=== PATIENT | female | born 1980 | race Caucasian/White ===

== ENCOUNTER 2016-06-09 07:34 | Day surgery (SDC) | payer OTHER ==
[2016-06-05 14:52] VITALS: BMI 27.0
[~2016-06-09 07:34] MED LIST: LACTATED RINGERS 1,000 ML IV SCH; LIDOCAINE 1% 20 ML VIAL (10MG/ML) FOR IV START INTRADERMA PRN
[2016-06-09] MEDS ORDERED: LACTATED RINGERS 1,000 ML IV ONE (07:42)
[2016-06-09] MEDS ORDERED: LIDOCAINE 1% 20 ML VIAL (10MG/ML) FOR IV START INTRADERMA ONE (07:48)
[2016-06-09 07:49] VITALS: RESP 18; TEMP 98
[2016-06-09] MEDS ORDERED: LIDOCAINE 1% INJ 10MG/ML (20 ML MDV) ONE (08:43)
[2016-06-09] MEDS ORDERED: PROPOFOL 10 MG/ML 20 ML VIAL IV ONE (08:43)
--- NOTE | 2016-06-09 09:22 | P.PCN ---
Date of Procedure: 06/09/16 Preoperative Diagnosis: Change in bowel habits Postoperative Diagnosis: Tortuous redundant sigmoid colon, diverticuli, suboptimal bowel prep, internal hemorrhoids Procedure(s) Performed: Colonoscopy Anesthesia: MAC Surgeon: Emi Schulz Estimated Blood Loss (ml): 0 IV fluids (ml): 300 Pathology: none sent Condition: stable Disposition: PACU Indications for Procedure: Change in bowel habits, family history colon cancer Operative Findings: Sigmoid diverticuli, tortuous redundant sigmoid colon, internal hemorrhoids Description of Procedure: Patient is a 35-year-old white female who has recently noted a change in bowel habits. She presents for colonoscopic evaluation. Patient was taken to the endoscopy suite and following sedation rectal exam was performed. Patient was noted to have adequate sphincter tone no masses. The colonoscope was passed through the anus into the rectum. The bowel prep was somewhat suboptimal. However we were able to evaluate the lumen and pass the scope carefully cephalad. The sigmoid colon was noted to be tortuous and redundant. Additionally there were noted to be diverticuli present. The prep was in better as we advance cephalad. The area of the splenic flexure was noted to the splenic flexure was somewhat high and somewhat sharp angulation. However we were carefully able to manipulate the scope through the area of the splenic flexure. The scope was passed through the transverse colon hepatic flexure right colon to the area of the cecum. No lesions of concern in the mucosa were identified. Proximally 6 minutes were taken to withdraw the scope from the area of the cecum to the rectum. Was performed to the mucosa. Again no lesions of concern were noted in the cecum or right colon. No areas of concern were noted in the transverse colon. No areas of concern in the left colon. The sigmoid colon was tortuous and redundant and diverticuli had been identified previously. The scope was brought down into the rectum where it was retroflexed and internal hemorrhoids were identified. Impression/plan: 1. Internal hemorrhoids 2. Redundant tortuous sigmoid colon with diverticuli Plan: 1. Conservative management
--- NOTE | 2016-06-09 09:23 | P.DS ---
Providers Attending physician: Emi Schulz Primary care physician: Sal Hodge Plan - Discharge Summary Discharge Medication List ALPRAZolam [Xanax] 0.25 mg PO TID PRN 06/05/16 [History] Birthcontrol 1 tab PO QAM 06/05/16 [History] Ibuprofen [Motrin] 200 - 400 mg PO Q6HR PRN 06/05/16 [History] Multivitamins, Thera [Multivitamin (formulary)] 1 tab PO DAILY 06/05/16 [History ] PARoxetine [Paxil] 20 mg PO QAM 06/05/16 [History] Follow up Appointment(s)/Referral(s): Emi Schulz MD [STAFF PHYSICIAN] - 1 Week Activity/Diet/Wound Care/Special Instructions: Do not drive today Discharge Disposition: HOME SELF-CARE
[2016-06-09 09:46] VITALS: BP 104/58; PULSE 70
== END 2016-06-09 10:04 | disposition home or self-care (01) ==
LOC: ORWHC2ENDO 07:34
PROVIDERS: ATTEND Surgery
DX: K57.30 Diverticulosis of large intestine without perforation or abscess without bleeding (principal); Q43.8 Other specified congenital malformations of intestine; K63.89 Other specified diseases of intestine; Z80.0 Family history of malignant neoplasm of digestive organs; K64.8 Other hemorrhoids; F32.9 Major depressive disorder, single episode, unspecified; F41.9 Anxiety disorder, unspecified; Z79.899 Other long term (current) drug therapy
CPT/HCPCS: 81025; 84703; 45378; J2001; J2704

== ENCOUNTER 2019-12-19 06:09 | Inpatient (IN) | payer BC, OTHER ==
--- NOTE | 2019-12-18 19:29 | P.HPOB ---
History of Present Illness H&P Date: 12/18/19 Chief Complaint: Scheduled repeat section This is a 38 y.o. female, 4, para 2, with an estimated date of confinement of 12/26/2019, estimated gestational age of 39 weeks, who presents for scheduled repeat section. She admits to good movement. She complains of irregular contractions and pressure. labs: GC/Chlamydia/Trich-neg Hepatitis B surface antigen-neg RPR-NR Rubella-immune Blood type-O+ Antibody screen-neg Hemoglobin-14.1 Random glucose-81 Quad screen-wnl US-normal anatomy 1 hr. GTT-120 GBS-positive OB Hx: . History of 1 miscarriage and 2 sections at term. 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 Works part-time for [employer]. Review of Systems Constitutional: Denies chills, Denies fever Eyes: denies blurred vision, denies pain Ears, nose, mouth and throat: Denies headache, Denies sore throat Cardiovascular: Denies chest pain, Denies shortness of breath Respiratory: Denies cough Gastrointestinal: Reports abdominal pain (contractions), Reports heartburn Genitourinary: Reports pelvic pain, Reports Musculoskeletal: Reports low back pain, Reports muscle cramps Neurological: Denies numbness, Denies weakness Psychiatric: Reports anxiety, Reports depression (history of depression) Past Medical History Past Medical History: No Reported History History of Any Multi-Drug Resistant Organisms: None Reported Past Surgical History: Section, Cholecystectomy, Tonsillectomy Additional Past Surgical History / Comment(s): c sect x 2,lt knee x3,taiwo bunionectomies Past Anesthesia/Blood Transfusion Reactions: Motion Sickness Additional Past Anesthesia/Blood Transfusion Reaction / Comment(s): tremors with anesthesia,no blood transfusion hx Past Psychological History: Anxiety, Depression Smoking Status: Never smoker Past Alcohol Use History: Occasional Past Drug Use History: None Reported - Past Family History Mother Family Medical History: Thyroid Disorder Father Family Medical History: No Reported History Medications and Allergies Home Medications Medication Instructions Recorded Confirmed Type Gph183/Iron/FA/O3/Dha/Epa/Fish 1 each PO DAILY 12/18/19 12/19/19 History [ Multi-Dha Softgel] Allergies Allergy/AdvReac Type Severity Reaction Status Date / Time No Known Allergies Allergy Verified 06/05/16 14:44 Exam Osteopathic Statement: *. No significant issues noted on an osteopathic structural exam other than those noted in the History and Physical/Consult. HEENT: within normal limits Heart: regular rate and rhythm Lungs: clear to auscultation bilaterally Abdomen: , non-tender Cervix: closed/60%/-2 heart tones: 150's by doppler Extremities: 1+ pitting edema bilaterally Results Result Diagrams: 12/19/19 06:35 Assessment and Plan (1) 39 weeks gestation of Current Visit: No Status: Acute Code(s): Z3A.39 - 39 WEEKS GESTATION OF SNOMED Code(s): 47921320 (2) Previous delivery affecting Current Visit: No Status: Acute Code(s): O34.219 - MATERNAL CARE FOR UNSP TYPE SCAR FROM PREVIOUS DEL SNOMED Code(s): 564202193 (3) Group B Streptococcus carrier, +RV culture, currently Current Visit: No Status: Acute Code(s): O99.820 - STREPTOCOCCUS B CARRIER STATE COMPLICATING SNOMED Code(s): 5570167893349 Plan: Admission for scheduled repeat section. I have discussed the risks, benefits, and alternative therapies for the above- mentioned procedure and for both sedation/anesthesia as well as necessary blood products administration, if indicated, as they pertain to this patient. The patient has indicated her understanding and acceptance of the risks and procedures discussed.
[2019-12-19] MEDS ORDERED: LACTATED RINGERS 1,000 ML IV ONE (06:34)
[2019-12-19] MEDS ORDERED: LIDOCAINE 1% (10MG/ML) FOR IV START INTRADERMA PRN (06:34)
[2019-12-19] MEDS ORDERED: CITRIC ACID-SODIUM CITRATE 15 ML CUP PO ONE (06:34)
[2019-12-19 06:48] LABS: Basophils % (A) 0 %; Eosinophils # (A) 0.1 k/uL (0-0.7); Eosinophils % (A) 1 %; HGB 10.1 gm/dL (11.4-16.0); Hypochromasia Slight; Lymphocytes # (A) 2.2 k/uL (1.0-4.8); Lymphocytes % (A) 20 %; MCH 25.9 pg (25.0-35.0); MCHC 32.7 g/dL (31.0-37.0); MCV 79.2 fL (80.0-100.0); Mean Platelet Volume 6.9; Monocytes # (A) 0.6 k/uL (0-1.0); Monocytes % (A) 5 %; Neutrophils # (A) 7.8 k/uL (1.3-7.7); Neutrophils % (A) 71 %; Platelet Count 314 k/uL (150-450); Poikilocytosis Slight; RBC 3.91 m/uL (3.80-5.40); RDW 15.6 % (11.5-15.5)
[2019-12-19] MEDS: LACTATED RINGERS 1,000 ML IV SCH ×3 (07:16→15:26)
--- NOTE | 2019-12-19 08:54 | P.OP ---
Date of Procedure: 12/19/19 Preoperative Diagnosis: 1. Intrauterine at 39-0/7 weeks. 2. History of previous sections. 3. Group B streptococcus carrier. Postoperative Diagnosis: Same Procedure(s) Performed: Repeat low transverse section Anesthesia: spinal (Duramorph) Surgeon: Ebony Parsons Industrial Controls Technician #1: Rin Obrien Estimated Blood Loss (ml): 400 Pathology: none sent Condition: stable Disposition: floor Indications for Procedure: This is a 38-year-old female 4 para 2 at 39-0/7 weeks who presented for scheduled repeat section. I have discussed the risks, benefits, and alternative therapies for the above- mentioned procedure and for both sedation/anesthesia as well as necessary blood products administration, if indicated, as they pertain to this patient. The patient has indicated her understanding and acceptance of the risks and procedures discussed. Operative Findings: A viable male infant is noted in the vertex presentation with scores of 9 at 1 minute and 9 at 5 minutes and weight of 8 lbs. 1 oz. Normal uterus tubes and ovaries are noted. Description of Procedure: The patient is taken to the operating room where she is placed in the dorsal supine position with leftward tilt after spinal Duramorph anesthesia is given. She is prepped and draped in the normal sterile fashion. Skin was tested and found to be adequately anesthetized. A Pfannenstiel skin incision was made with a scalpel through the previous laparotomy scar. A second knife was used to carry the incision down to the underlying layer of fascia. The fascia was nicked in the midline with a scalpel and then extended laterally bilaterally with Andres scissors. The anterior lip of the fascia was grasped with 2 Marcel clamps and then dissected off the underlying rectus muscle in the midline with Andres scissors. The inferior aspect of the fascial incision was grasped with 2 Marcel clamps and dissected off the underlying rectus muscle and the midline with Andres scissors. Next the peritoneum layer was tented up with 2 hemostats and then entered sharply with the scalpel. The incision is extended superiorly and inferiorly with Metzenbaum scissors. Next a DeLee retractor is placed. The vesicouterine peritoneum is entered sharply with Metzenbaum scissors and extended laterally bilaterally with Metzenbaum scissors and then the bladder flap is pushed inferiorly. The lower uterine segment is incised in transverse fashion with the scalpel and then bluntly entered with a hemostat. Clear fluid is noted. The incision was then extended laterally bilaterally with 2 fingers. Next the infant's head is delivered through the incision. Nose and mouth are bulb suctioned. The remainder of the is easily delivered and placed on mother's abdomen. Cord is clamped and cut. is taken to warmer by nursing staff. Cord blood was obtained secondary to O+ blood type. Uterine fundus is gently massaged and placenta is delivered manually. Uterus is exteriorized and cleared of all clots and debris. Uterine incision is closed with 0 Vicryl suture in a running locked fashion. A second layer of 0 Vicryl suture is used in a running fashion for hemostasis. Once adequate hemostasis as assured, the vesicouterine peritoneum is reapproximated with 2-0 Vicryl suture in a running fashion. Posterior cul-de-sac is suctioned of all clots and debris. Uterus is returned to the abdomen. Incision is noted to be hemostatic. Peritoneal layer is closed with 0 Vicryl suture in a running fashion. Muscle layer is reapproximated with 0 Vicryl suture in interrupted fashion. Fascia layer is then closed with 0 PDS suture with 2 sutures meeting in the midline and the knots buried in either side and in the midline. The subcutaneous tissue was then closed with 2-0 Vicryl suture. Skin layer was then closed with román. All sponge and needle counts are correct. The patient is taken to recovery room in stable condition.
[2019-12-19] MEDS ORDERED: HYDROcodone/APAP 7.5-325MG 1 EACH TAB PO PRN (09:06)
[2019-12-19] MEDS ORDERED: diphenhydrAMINE 50 MG CAP PO PRN (09:06)
[2019-12-19] MEDS ORDERED: OXYTOCIN 20 UNITS/1000 ML NS 1,000 ML IV SCH (09:06)
[2019-12-19] MEDS ORDERED: NALOXONE 0.4 MG/ML 1 ML VIAL IV PRN (09:06)
[2019-12-19] MEDS ORDERED: ONDANSETRON 4 MG/2 ML VIAL IVP PRN (09:06)
[2019-12-19] MEDS ORDERED: ZOLPIDEM 5 MG TAB PO PRN (09:06)
[2019-12-19] MEDS ORDERED: diphenhydrAMINE 50 MG/ML 1 ML VIAL IVP PRN ×2 (09:06)
[2019-12-19] MEDS ORDERED: LANOLIN CREAM 5 GM TUBE TOPICAL PRN (09:06)
[2019-12-19] MEDS ORDERED: diphenhydrAMINE 25 MG CAP PO PRN (09:06)
[2019-12-19] MEDS ORDERED: METOCLOPRAMIDE 5 MG/ML 2 ML VIAL IVP PRN (09:06)
[2019-12-19] MEDS ORDERED: ACETAMINOPHEN TAB 325 MG TAB PO PRN (09:06)
[2019-12-19] MEDS: PRENATAL VIT-IRON-FOLIC ACID 1 EACH CAP PO SCH (09:51)
[2019-12-19] MEDS: SENNOSIDES-DOCUSATE SODIUM 1 EACH TAB PO SCH (09:52)
[2019-12-19] MEDS: KETOROLAC 15 MG/ML 1 ML VIAL IVP PRN (22:56)
[2019-12-19] MEDS: SIMETHICONE 80 MG CHEWABLE PO PRN (23:35)
--- NOTE | 2019-12-20 06:27 | P.PN ---
Progress Note - Text Progress Note Date: 12/20/19 Virginia is postop day 1 from a spinal Duramorph. Her postop has been uneventful. Pain is been under control. She had minimal months of itching. She has been able to ambulate and been able to urinate on her own. She has not had any bowel movements. She denies any overt weakness. He denies any respiratory depression and difficulty in breathing.
[2019-12-20] MEDS: KETOROLAC 15 MG/ML 1 ML VIAL IVP PRN (06:48)
[2019-12-20] MEDS: SENNOSIDES-DOCUSATE SODIUM 1 EACH TAB PO SCH ×3 (08:08→19:51)
--- NOTE | 2019-12-20 08:29 | P.PNOBGPC ---
Subjective - Subjective Principal diagnosis: Status post repeat section postoperative day #1 Interval history: Patient is doing well. She is passing flatus. She has not had a bowel movement yet. She has urinated without difficulty. Her pain is well-controlled so far with Toradol. She is bottle feeding. Lochia is decreasing. Patient reports: Reports appetite normal, Reports voiding normally, Reports pain well controlled, Reports ambulating normally : doing well, bottle feeding Objective - Vital Signs Latest vital signs: Vital Signs Temp Pulse Resp BP Pulse Ox 12/20/19 07:57 98.2 F 96 16 113/66 12/20/19 04:00 98.2 F 98 16 115/78 12/20/19 00:00 98.1 F 108 H 15 110/78 12/19/19 20:05 98 F 100 15 135/84 100 12/19/19 16:00 98.6 F 95 18 118/74 12/19/19 11:15 97.3 F L 85 18 108/60 98 12/19/19 10:28 97.0 F L 90 18 111/62 97 12/19/19 10:00 78 112/63 12/19/19 09:45 96.9 F L 88 18 111/65 98 12/19/19 09:30 87 115/65 12/19/19 09:15 96.5 F L 97 18 117/63 98 12/19/19 09:00 97.4 F L 99 18 118/64 97 Intake and Output 12/19/19 12/20/19 12/20/19 22:59 06:59 14:59 Output Total 8452 939 0763 Balance -1600 -450 -1600 Output: Urine 5867 108 5009 Uretheral (Zimmer) 1150 Other: # Voids 1 - Exam Extremities: Present: normal. Absent: tenderness Abdomen: Present: normal appearance, soft. Absent: distention, tenderness Incision: Present: normal, dry, intact. Absent: erythematous Uterus: Present: normal, firm. Absent: tenderness Assessment and Plan Assessment: Status post repeat section postoperative day #1 (1) 39 weeks gestation of Current Visit: No Status: Acute Code(s): Z3A.39 - 39 WEEKS GESTATION OF SNOMED Code(s): 84613615 (2) Previous delivery affecting Current Visit: No Status: Acute Code(s): O34.219 - MATERNAL CARE FOR UNSP TYPE SCAR FROM PREVIOUS DEL SNOMED Code(s): 495636122 (3) Group B Streptococcus carrier, +RV culture, currently Current Visit: No Status: Acute Code(s): O99.820 - STREPTOCOCCUS B CARRIER STATE COMPLICATING SNOMED Code(s): 0739261415122 Plan: Continue with postoperative care. Will switch to oral pain medications today. Anticipate probable discharge home tomorrow.
[2019-12-20 09:37] LABS: Basophils % (A) 0 %; Eosinophils % (A) 0 %; HCT 29.3 % (34.0-46.0); HGB 9.4 gm/dL (11.4-16.0); Lymphocytes # (A) 1.4 k/uL (1.0-4.8); Lymphocytes % (A) 12 %; MCH 25.5 pg (25.0-35.0); MCV 79.8 fL (80.0-100.0); Mean Platelet Volume 7.2; Monocytes # (A) 0.6 k/uL (0-1.0); Monocytes % (A) 5 %; Neutrophils # (A) 9.5 k/uL (1.3-7.7); Neutrophils % (A) 82 %; Platelet Count 272 k/uL (150-450); Poikilocytosis Slight; RBC 3.67 m/uL (3.80-5.40); RDW 15.5 % (11.5-15.5); WBC 11.6 k/uL (3.8-10.6)
[2019-12-20] MEDS: IBUPROFEN 600 MG TAB PO PRN ×2 (11:58→18:25)
[2019-12-20] MEDS: PRENATAL VIT-IRON-FOLIC ACID 1 EACH CAP PO SCH (11:58)
[2019-12-20] MEDS: SIMETHICONE 80 MG CHEWABLE PO PRN (15:42)
[2019-12-20] MEDS: LACTATED RINGERS 1,000 ML IV SCH ×4 (20:42→20:43)
[2019-12-20] MEDS: HYDROcodone/APAP 5-325MG 1 EACH TAB PO PRN (23:56)
[2019-12-21] MEDS ORDERED: ONDANSETRON 4 MG/2 ML VIAL IVP PRN (01:35)
[2019-12-21] MEDS ORDERED: diphenhydrAMINE 50 MG/ML 1 ML VIAL IVP PRN ×2 (01:35)
[2019-12-21] MEDS ORDERED: NALOXONE 0.4 MG/ML 1 ML VIAL IV PRN (01:36)
[2019-12-21] MEDS: HYDROcodone/APAP 5-325MG 1 EACH TAB PO PRN ×2 (04:26→12:53)
[2019-12-21] MEDS: SENNOSIDES-DOCUSATE SODIUM 1 EACH TAB PO SCH (08:32)
[2019-12-21] MEDS: IBUPROFEN 600 MG TAB PO PRN (08:32)
--- NOTE | 2019-12-21 08:59 | P.DS ---
Providers Date of admission: 12/19/19 06:09 Expected date of discharge: 12/21/19 Attending physician: Ebony Parsons Primary care physician: Stated None - Discharge Diagnosis(es) (1) 39 weeks gestation of Current Visit: No Status: Acute (2) Previous delivery affecting Current Visit: No Status: Acute (3) Group B Streptococcus carrier, +RV culture, currently Current Visit: No Status: Acute Hospital Course: This is a 38-year-old female 4 para 2 at 39-0/7 weeks who presented for scheduled repeat section. She underwent a repeat low transverse section under spinal Duramorph anesthesia and delivered a viable male infant with scores of 9 at 1 minute and 9 at 5 minutes and infant weight of 8 lbs. 1 oz. Her course has been uncomplicated. She has been passing some flatus but no bowel movement yet. Lochia is decreasing. Her pain has been fairly well-controlled with ibuprofen and [place]. Vital signs are stable. Abdomen is soft with positive bowel sounds 4. Incision is clean dry and intact with román in place. Extremities show negative Homans. Impression is status post repeat section postoperative day #2. Plan is to discharge home later today. Routine postoperative and instructions are given. Román will be removed and Steri-Strips placed prior to discharge. She will be given a perception for ibuprofen and [place]. She was counseled on opioid use and has signed a start taking opioid form. She is advised follow-up in the office in 1 week for a postoperative check and in 6 weeks for a postpartu m check. She is advised to call the office if she has any further questions or concerns prior to her appointment time. Procedures: Repeat low transverse section on 12/19/2019 Patient Condition at Discharge: Stable Plan - Discharge Summary New Discharge Prescriptions: New Ibuprofen [Motrin] 600 mg PO Q6HR PRN #60 tab PRN Reason: Mild Pain Or Fever >= 100.5 HYDROcodone/APAP 5-325MG [[place] 5-325] 1 each PO Q4HR PRN #28 tab PRN Reason: Moderate Pain Continue Fti171/Iron/FA/O3/Dha/Epa/Fish [ Multi-Dha Softgel] 1 each PO DAILY Discharge Medication List Lnc199/Iron/FA/O3/Dha/Epa/Fish [ Multi-Dha Softgel] 1 each PO DAILY 12/18/19 [History] HYDROcodone/APAP 5-325MG [[place] 5-325] 1 each PO Q4HR PRN #28 tab 12/21/19 [Rx] Ibuprofen [Motrin] 600 mg PO Q6HR PRN #60 tab 12/21/19 [Rx] Follow up Appointment(s)/Referral(s): Ebony Parsons DO [Doctor of Osteopathic Medicine] - 1 Week Activity/Diet/Wound Care/Special Instructions: Instructions 1. Do not begin any exercise program for 3 weeks. 2. Do not resume sexual relations for 3 weeks or longer if uncomfortable. 3. You may take tub baths or showers at any time. 4. You may use tampons if desired after 3 weeks. 5. Keep the area of episiotomy (stitches) clean and dry. 6. If you are not nursing, wear a good fitting, supportive bra during the day and limit fluid intake for at least 1 week to prevent breast engorgement. 7. Call the office, [phone], within the next week to make appointment for your 6 week checkup if it has not already been made. 8. Report any of the following occurrences to the doctor promptly: a. Heavy, excessive bleeding b. Chills, fever c. Burning or frequency of urination d. Pain or redness and breasts if nursing e. Increasing pain or swelling in episiotomy (stitches). In addition to the above instructions, the following additional should be followed: 1. No heavy lifting or straining (exercising) until after 6 week checkup. 2. Keep abdominal incision clean and dry: You may wear a dressing if more comfortable. 3. Make office appointment for 10 days after going home or as instructed by her doctor. Discharge Disposition: HOME SELF-CARE
[2019-12-21 09:54] VITALS: BP 115/67; PULSE 77; RESP 16; TEMP 97.9
[2019-12-21] MEDS: PRENATAL VIT-IRON-FOLIC ACID 1 EACH CAP PO SCH (09:56)
== END 2019-12-21 15:17 | disposition home or self-care (01) | DRG 788 ==
LOC: 4FBP 06:09
PROVIDERS: ADMIT Obstetrics & Gynecology; ATTEND Obstetrics & Gynecology
PROC: 10D00Z1 Extraction of Products of Conception, Low, Open Approach (ICD-10-PCS; principal; 2019-12-19 08:00)
DX: O34.211 Maternal care for low transverse scar from previous cesarean delivery (principal); O99.824 Streptococcus B carrier state complicating childbirth; Z86.59 Personal history of other mental and behavioral disorders; Z37.0 Single live birth; Z3A.39 39 weeks gestation of pregnancy; Z90.49 Acquired absence of other specified parts of digestive tract; Z90.89 Acquired absence of other organs; Z87.19 Personal history of other diseases of the digestive system; Z87.898 Personal history of other specified conditions; Z83.49 Family history of other endocrine, nutritional and metabolic diseases
CPT/HCPCS: 85025; 86850; 86900; 86901

== ENCOUNTER → 2022-01-02 | Outpatient (CLI) | payer BC, OTHER ==
--- NOTE | 2022-01-02 12:50 | US ---
EXAMINATION TYPE: Transabdominal DATE OF EXAM: 01/02/2022 12:21 PM COMPARISON: NONE CLINICAL HISTORY: O46.91 SPOTTING for one day, mild cramping. EXAM PERFORMED: Transvaginal (TV) and Transabdominal (TA) EXAM MEASUREMENTS: GESTATIONAL AGE / DATING Physician Established: Not yet establishedDates by LMP: 10/31/2021 (9 weeks/0 days) EDC: 08/07/2022 Dates by First Scan: No previous this is first scan Dates by Current Scan for: (6 weeks/1 days) EDC: 08/27/2022 MATERNAL ANATOMY Uterus: 10.7 x 5.3 x 6.9cm Right Ovary: 2.6 x 2.2 x 2.3cm Left Ovary: 2.5 x 1.8 x 2.2cm Post CDS / Adnexa: wnl Presence of free fluid: No Presence of corpus luteal cyst: No Presence of subchorionic bleed: No GESTATION / SURVEY CRL: 0.41cm (6 weeks/1 days) MSD: 1.76cm (6 weeks/1 days) Yolk Sac (normal less than 6mm): 2.2mm Heart Rate: 0 bpm IUP: Demise versus early . Short-term follow-up and correlation with beta hCG recomme nded Date of LMP: 10/31/2021 IMPRESSION: 1. Nonvisualization of cardiac activity within the pole. Early versus demise. C orrelation with beta-hCG and follow-up recommended. 2. Single intrauterine gestational sac with pole estimated at 6 weeks 1 day gestation based on the crown-rump length and the mean sac diameter.
== END | disposition home or self-care (01) ==
LOC: RADUSWWP 11:06
PROVIDERS: ATTEND Obstetrics & Gynecology
DX: O26.891 Other specified pregnancy related conditions, first trimester (principal); Z3A.01 Less than 8 weeks gestation of pregnancy
CPT/HCPCS: 76801; 76817; 84702

== ENCOUNTER 2022-01-08 10:49 | Day surgery (SDC) | payer BC, OTHER ==
[2022-01-06 15:16] VITALS: BMI 25.2
--- NOTE | 2022-01-08 08:24 | P.HPOB ---
History of Present Illness H&P Date: 01/08/22 Chief Complaint: Incomplete This is a 41 y.o. female, 5, para 3, with a LMP of 10/31/2021, who presents for suction dilatation and curettage due to incomplete miscarriage. She had 2 ultrasounds showing pole with no heart tones. She has been bleeding and passing clots and tissue. She had another ultrasound in the office yesterday that still showed a sac low in the uterus with clot. HEr BHCG levels have been falling and blood type is O+. 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 Unemployed. Review of Systems Constitutional: Denies chills, Denies fever Eyes: denies blurred vision, denies pain Ears, nose, mouth and throat: Denies headache, Denies sore throat Cardiovascular: Denies chest pain, Denies shortness of breath Respiratory: Denies cough Gastrointestinal: Reports abdominal pain (cramping) Genitourinary: Reports abnormal vaginal bleeding, Reports pelvic pain, Reports Musculoskeletal: Denies myalgias Integumentary: Denies pruritus, Denies rash Neurological: Denies numbness, Denies weakness Psychiatric: Reports anxiety, Reports depression Past Medical History Past Medical History: No Reported History History of Any Multi-Drug Resistant Organisms: None Reported Past Surgical History: Section, Cholecystectomy, Orthopedic Surgery, Tonsillectomy Additional Past Surgical History / Comment(s): Section X3, left knee surgery X3, bilateral bunionectomies. Past Anesthesia/Blood Transfusion Reactions: Motion Sickness Additional Past Anesthesia/Blood Transfusion Reaction / Comment(s): Tremors with anesthesia. No blood transfusion hx. Past Psychological History: Anxiety, Depression Smoking Status: Never smoker Past Alcohol Use History: Occasional Past Drug Use History: None Reported - Past Family History Mother Family Medical History: No Reported History, Thyroid Disorder Father Family Medical History: No Reported History Medications and Allergies Home Medications Medication Instructions Recorded Confirmed Type Rqm584/Iron/FA/O3/Dha/Epa/Fish 1 each PO DAILY 12/18/19 01/06/22 History [ Multi-Dha Softgel] Allergies Allergy/AdvReac Type Severity Reaction Status Date / Time No Known Allergies Allergy Verified 01/08/22 11:10 Exam Osteopathic Statement: *. No significant issues noted on an osteopathic structural exam other than those noted in the History and Physical/Consult. HEENT: within normal limits Heart: regular rate and rhythm Lungs: clear to auscultation bilaterally Abdomen: soft, mildly tender suprapubic area Pelvic: Cervix os sl. opened with some clot. Uterus anteverted, mildly tender, slightly enlarged with no adnexal masses or tenderness Extremities: neg. Emily's Assessment and Plan (1) Incomplete Current Visit: No Status: Acute Code(s): O03.4 - INCOMPLETE SPONTANEOUS WITHOUT COMPLICATION SNOMED Code(s): 926089577 Plan: Proceed with suction dilatation and curettage. I have discussed the risks, benefits, and alternative therapies for the above- mentioned procedure and for both sedation/anesthesia as well as necessary blood products administration, if indicated, as they pertain to this patient. The patient has indicated her understanding and acceptance of the risks and procedures discussed.
[~2022-01-08 10:49] MED LIST changes: +DEXAMETHASONE SOD PHOSPHATE 4 MG/ML 1 ML VIAL IV ONE; +HYDROmorphone 0.5 MG/0.5 ML SYRINGE IVP PRN; +LIDOCAINE 1% (10MG/ML) FOR IV START INTRADERMA PRN; -LIDOCAINE 1% 20 ML VIAL (10MG/ML) FOR IV START INTRADERMA PRN; +MIDAZOLAM 2 MG/2 ML VIAL IV PRN; +ONDANSETRON 4 MG/2 ML VIAL IVP ONE; +Pre Op ABX Message 1 EACH MISC MISCELLANE ONE
[2022-01-08 11:21] VITALS: RESP 16
[2022-01-08] MEDS ORDERED: SCOPOLAMINE 1 MG/72 HR PATCH TRANSDERM ONE (11:40)
[2022-01-08] MEDS ORDERED: fentaNYL (PF) 50 MCG/ML 2 ML AMP ONE (12:06)
[2022-01-08] MEDS ORDERED: PROPOFOL 10 MG/ML 20 ML VIAL IV ONE (12:06)
[2022-01-08] MEDS ORDERED: LIDOCAINE 2% INJ 20 MG/ML (2 ML VIAL) ONE (12:06)
[2022-01-08] MEDS ORDERED: MIDAZOLAM 2 MG/2 ML VIAL ONE (12:06)
--- NOTE | 2022-01-08 12:45 | P.OP ---
Date of Procedure: 01/08/22 Preoperative Diagnosis: Incomplete Postoperative Diagnosis: Same Procedure(s) Performed: Suction dilation and curettage Anesthesia: other (LMA general) Surgeon: Ebony Parsons Estimated Blood Loss (ml): 10 Pathology: other (Products of conception) Condition: stable Disposition: same day Indications for Procedure: This is a 41 y.o. female, 5, para 3, with a LMP of 10/31/2021, who presents for suction dilatation and curettage due to incomplete miscarriage. She had 2 ultrasounds showing pole with no heart tones. She has been bleeding and passing clots and tissue. She had another ultrasound in the office yesterday that still showed a sac low in the uterus with clot. HEr BHCG levels have been falling and blood type is O+. Operative Findings: Uterus is anteverted, sounded to 9 cm. There was some tissue at the cervical os was noted to be open slightly. No adnexal masses are palpated. A large amount of products of conception are obtained. Description of Procedure: The patient was taken to the operating room where she is placed in the dorsal lithotomy position. She is prepped in the normal sterile fashion. Her bladder is drained with a catheter. Pelvic exam is performed under anesthesia. The above noted findings are made. Next a weighted speculum was placed in the patient's vagina in slight Trendelenburg position was placed. A right angle retractor was used to visualize the cervix. The anterior lip of the cervix is grasped with a single-tooth tenaculum. Next the uterus is sounded to 9 cm. Cervix is gently dilated with Moses dilators until an 8 mm curved suction curet to be placed. Suction curetting was performed until a gritty texture was noted. A large amount of tissue was obtained. Next single-tooth tenaculum is removed and pressure was applied to the tenaculum site. A ring forcep was placed on the anterior lip of the cervix for hemostasis. Once adequate hemostasis was noted and the ring forcep was removed, no active bleeding was noted. All instruments are removed from the vagina. Sponge counts are correct. The patient is then taken to recovery room in stable condition.
[2022-01-08 12:58] VITALS: TEMP 98
[2022-01-08] MEDS ORDERED: LACTATED RINGERS 1,000 ML IV ONE (13:30)
[2022-01-08 13:54] VITALS: BP 103/71; PULSE 78
== END 2022-01-08 14:31 | disposition home or self-care (01) ==
LOC: OR 10:49
PROVIDERS: ATTEND Obstetrics & Gynecology
DX: O03.4 Incomplete spontaneous abortion without complication (principal); F41.9 Anxiety disorder, unspecified; F32.A Depression, unspecified; F10.90 Alcohol use, unspecified, uncomplicated; Z98.891 History of uterine scar from previous surgery; Z90.49 Acquired absence of other specified parts of digestive tract; Z98.890 Other specified postprocedural states; Z90.89 Acquired absence of other organs; Z83.49 Family history of other endocrine, nutritional and metabolic diseases; Z79.899 Other long term (current) drug therapy
CPT/HCPCS: 59812; 86900; 86901; 88305; 86850; J2250; J1100; J2405; J3010; J2704; J2001